=== PATIENT | male | born 1965 | race American Indian/Alaskan Native ===

== ENCOUNTER 2019-08-06 10:07 | Day surgery (SDC) | payer BC, OTHER ==
[~2019-08-06 10:07] MED LIST: SODIUM CHLORIDE 0.9% 1000 ML 1,000 ML IV SCH
[2019-08-06] MEDS ORDERED: PROPOFOL 200 MG/20 ML VIAL IV ONE ×4 (12:08→12:31)
--- NOTE | 2019-08-06 12:08 | Anesthesia Day of Surgery ---
Anesthesia Day of Surgery - Day of Surgery Patient Examined: Yes Patient H&P Reviewed: Yes Patient is NPO: Yes Beta Blockers: No Cardiac Clearance: No Pulmonary Clearance: No Chauncey's Test: N/A
--- NOTE | 2019-08-06 12:09 | Anesthesia Consultation ---
Anesthesia Consult and Med Hx Date of service: 08/06/19 - Airway Anesthetic Teeth Evaluation: Good ROM Head & Neck: Adequate Mental/Hyoid Distance: Adequate Mallampati Class: Class II Intubation Access Assessment: Probably Good - Pulmonary Exam CTA: Yes - Cardiac Exam Cardiac Exam: RRR - Pre-Operative Health Status ASA Pre-Surgery Classification: ASA2 Proposed Anesthetic Plan: General, MAC - Pulmonary Hx Smoking: Yes - Cardiovascular System Hx Hypertension: Yes
[2019-08-06] MEDS ORDERED: LIDOCAINE MPF (2%) 20 MG/1 ML VIAL 5 ML ONE (13:00)
--- NOTE | 2019-08-06 13:12 | Operative Report ---
Operative Report Operative Report: Procedure: Colonoscopy with Multiple Snare Polypectomies, Multiple Submucosal Injections with Elevation of Polyps, Multiple Hot Biopsy Polypectomies, Multiple Ablation of Sigmoid colon polyps and Rectal Polyps. Attending physician: Elijah Luo M.D. Reflow Operator: Elijah Luo M.D. Indication: Patient is a 54-year-old male referred for colorectal cancer screening. This colonoscopy serves to evaluate patient so that treatment may be directed based on the findings. Consent: Informed consent was obtained after advising the patient and family regarding nature of this procedure, its indications, potential benefits as well as possible complications including but not limited to bleeding perforation and adverse reaction to medication, infection as well as other cardiopulmonary complications. An informed written and verbal consent was then obtained after due opportunity was provided for questions and answers. Monitoring: Patient was monitored continuously with pulse oximetry and electrocardiographic recordings as well as blood pressure recordings. Vital signs remained stable throughout this procedure with no untoward events. Preoperative assessment: Patient was assessed immediately prior to this procedure for capacity to tolerate monitored anesthesia care and moderate sedation as well as general anesthesia. Patient's ASA classification is 2, Mallampati class is 2, Hyomental distance is 3. Instrument: Olympus video colonoscope.: CF-HQ 190L Medications: Propofol given intravenously in divided doses. For details please refer to anesthesia records. Description of procedure: Patient was placed in the left lateral decubitus position after achieving sedation, a digital rectal examination was performed following which the colonoscope was introduced into the anal verge and advanced to the cecum which was identified by the cecal valve, the appendiceal orifice, as well as by the cecal strap and direct transillumination. The colonoscope was subsequently withdrawn with careful inspection of all mucosal surfaces. Patient tolerated this procedure well and was subsequently taken to the recovery room. The following findings were noted. Findings: Patient had densely adherent stool in the cecum. There was extensive diverticulosis in the ascending colon. There was residual stool also seen in the ascending colon. The transverse colon was normal. The descending colon was normal. Patient had extensive diverticular disease of the sigmoid colon. In the sigmoid colon, patient had a sessile 1 cm polyp which was elevated with submucosal injection of saline and removed by snare electrocautery and retrieved. Patient had another 8 mm semi-pedunculated polyp that was removed by cold snare polypectomy and retrieved a Hemoclip was placed at the polypectomy base. Patient had multiple flat polyps measuring between 8 mm to 10 mm. 5 of these were elevated with submucosal injection of saline and removed by cold snare polypectomy and retrieved. Patient also had multiple diminutive flat polyps that were removed by hot biopsy polypectomy and retrieved. Patient also had diminutive flat polyps that were ablated in the sigmoid colon. Patient additionally had additional diminutive polyps in the rectum that were ablated. On the retroflexed view at the anal verge, patient had internal hemorrhoids. Impression: Multiple sigmoid colon polyps status post submucosal injection and cold snare polypectomy Sigmoid colon polyp status post submucosal injection and snare electrocautery Multiple diminutive sigmoid colon polyp status post hot biopsy polypectomy Multiple diminutive sigmoid colon polyp status post ablation Sigmoid colon polyp status cold snare polypectomy and Hemoclip application Rectal polyp status post ablation Diverticular disease of the colon Retained stool Internal hemorrhoids Plan: Follow pathology report. High-fiber diet. Consider repeat colonoscopy in 6 months due to substantial number of polyps and relatively poor colonoscopic preparation .
--- NOTE | 2019-08-06 13:12 | Discharge Summary ---
Short Stay Discharge Plan Activity: advance as tolerated Diet: regular Additional Instructions: Post Sedation D/C Instructions When you return home you may resume your regular diet unless otherwise directed. -Go directly home from the hospital and rest quietly. You may resume normal activities tomorrow. -Do NOT drive, return to work, operate any machinery or make any important personal or business decisions today . -Do NOT drink any alcohol or take nerve or sleeping drugs. They add to the effects of the medicine still present in your body. NO Aspirin or Aspirin products for 4 days Follow up with: PRIMARY CARE, [Primary Care Provider] - 7 Days
[2019-08-06 13:25] VITALS: BP 138/82
--- NOTE | 2019-08-06 20:41 | Post Anesthesia Evaluation ---
- Post Anesthesia Evaluation Patient Participated: Yes Airway Patent: Yes Stable Respiratory Function: Yes Nausea/Vomiting: No Temp > 96.8F: Yes Pain Manageable: Yes Adequeate Hydration: Yes Anesthesia Complications: No Block Receding Appropriately: Not Applicable Patient on Ventilator: No
== END 2019-08-06 10:08 | disposition home or self-care (01) ==
LOC: GIO 10:07
PROVIDERS: ATTEND Internal Medicine Gastroenterology
DX: Z12.11 Encounter for screening for malignant neoplasm of colon (principal); D12.5 Benign neoplasm of sigmoid colon; I10 Essential (primary) hypertension; K57.30 Diverticulosis of large intestine without perforation or abscess without bleeding; K64.8 Other hemorrhoids; F17.210 Nicotine dependence, cigarettes, uncomplicated
CPT/HCPCS: 45381; 45384; 45385; 45388; 88305; J2704; J7030